=== PATIENT | female | born 1970 | race Caucasian/White ===

== ENCOUNTER 2023-11-10 17:39 | Emergency (ER) | payer BC, SELFPAY ==
[2023-11-10 17:41] VITALS: BP 126/78
--- NOTE | 2023-11-10 18:39 | ED.GENMED ---
History of Present Illness
General
Chief Complaint: Chest Pain
Time Seen by Provider: 11/10/23 18:04
Travel History
Have you had any contact with someone who has COVID-19?: No
Do you have any symptoms of coronavirus? Fever > 100 degrees, chills, cough, shortness of breath, sore throat, loss of taste or smell, muscle aches, or headache?: No
History of Present Illness
History of Present Illness:
53-year-old female with history of rheumatoid arthritis and hyperlipidemia presents to the emergency department for evaluation of episodic sharp chest pains occurring for the past 2 weeks. She also notes that she has had persistent thoracic back
pain during this time that does not seem to have any clear modifying factors. Chest pain is random, not provoked by anything in particular. Pain lasted mere seconds before resolving. Pain is nonradiating. Has recently establish care with a
mixed crop and livestock farm worker due to severe hyperlipidemia and had coronary calcium scoring as well as carotid ultrasounds, does not have these results as of yet. Currently asymptomatic in the ED exam room
Past History
Past History
ED Past Medical History: Other (migraine, ra, TIAs)
ED Past Surgical History: None
Social History
Tobacco: Non-smoker
Alcohol: None
Drug: None
Personal:
Living: with family
Review of Systems
Review of Systems
Allergies reviewed?: Yes
All Other Systems: ROS reviewed and negative except as documented in HPI and ROS
Phy Exam
Physical Exam
Physical Exam:
GEN: Well appearing, NAD, WDWN
HEENT: Oral mucosa moist, no scleral icterus
Cardiac: Regular rate and rhythm, no murmurs
Lung: No respiratory distress, no tachypnea, lungs clear to auscultation bilaterally
MSK: No gross deformity or injuries
Skin: Good color, no pallor or jaundice, no rashes
Neuro: AO x3, moves all extremities freely
Psych: Calm, cooperative
Scores
Heart Score for Chest Pain Patients
STEMI patient?: No
History: Slightly or Non-Suspicious
ECG: Normal
Age: >45 - <65 years
Risk Factors: 1 or 2 Risk Factors
Troponin: </= Normal Limit
Heart Score for Chest Pain Patients: 2
Heart Score Risk: 2.5% MACE over next 6 weeks
Course
Orders/Labs/Results
Orders:
Orders
11/10/23 17:40
Electrocardiogram (*1) Urgent
Reason for Study: Chest Pain
EKG- Treatment ONCE
11/10/23 19:30
Complete Blood Count/With Diff Urgent
Comprehensive Metabolic Panel Urgent
D-Dimer Urgent
Troponin I Urgent
11/10/23 20:14
CR Chest - 2 Views Urgent
Comment:
Reason For Exam: chest pain
Abnormal Lab Results
11/10/23
19:30
Creatinine 0.5 L mg/dL
(0.6-1.0)
Total Protein 6.1 L g/dl
(6.3-8.2)
11/10/23 19:30
11/10/23 19:30
Vital Signs
Initial and Last Documented VS:
Initial Vital Signs
Temp Pulse Resp BP Pulse Ox
97.9 F 83 20 126/78 99
11/10/23 17:41 11/10/23 17:41 11/10/23 17:41 11/10/23 17:41 11/10/23 17:41
Last Documented Vital Signs
Temp Pulse Resp BP Pulse Ox
97.9 F 72 15 97/62 98
11/10/23 17:41 11/10/23 20:54 11/10/23 20:54 11/10/23 21:16 11/10/23 21:18
MDM/Problems Addressed
MDM/Problems Addressed:
Patient's workup is grossly unremarkable. Low clinical suspicion for cardiogenic source of symptoms. D-dimer negative rules out PE. She is an unremarkable aortic arch on chest x-ray, given her lack of risk factors and female gender I find it
unlikely for her to have a aortic dissection particular given the duration of her thoracic back pain being 2 weeks. Recommend outpatient PCP follow-up
Comment
Comment:
EKG independently interpreted by me shows normal sinus rhythm at a rate of [address] changes concerning for ischemia, QTc of 461
*Critical Care Note
Total Time (30-74mins, 75-104mins- exclusive of procedures): Not Applicable
ED Attending Note
-
Portions of this chart may have been created with voice recognition software.� Occasional wrong word or��sound alike� substitutions may have occurred due to the inherent limitations of voice recognition software.
Discharge Plan
Departure
Patient Disposition: Home (Routine Discharge)
Date of Disposition: 11/10/23
Time of Disposition: 21:11
Patient with high blood pressure during this ER visit?: No
Discharge Problem:
Atypical chest pain
Instructions: Chest Pain That Is Not Caused by the Heart (DC)
Prescriptions:
No Action
pantoprazole 40 MG tablet,delayed release (DR/EC)
40 mg PO DAILY
Theragen Tablet
1 tab PO DAILY
aspirin 81 mg Tablet,Delayed Release (Dr/Ec)
81 mg PO DAILY
ibuprofen [Advil] 200 mg Tablet
400 mg PO TIDPRN PRN (Reason: mild pain)
cholecalciferol (vitamin D3) 25 mcg (1,000 unit) Tablet
25 mcg PO DAILYPRN PRN (Reason: supplement)
Repatha SureClick 140 mg/mL Pen Injector
140 mg SC Q2W
Humira(CF) Pen 40 mg/0.4 mL Pen Injector Kit
40 mg SC Q2W
Patient Comments:
11/10/2023, per pt., next dose is tomorrow (11/11/2023).
Referrals:
Alcon Obrien MD [Family Provider] -
Interventions
Interventions:
*Risk Screen - Suicide Last Done: 11/10/23 19:29
*General Assessment Last Done: 11/10/23 19:29
*Neglect/Abuse Screening Last Done: 11/10/23 19:29
ED- Fall Risk Assessment Last Done: 11/10/23 21:21
*ED COVID-19 Vaccine History Last Done: 11/10/23 19:29
*Nursing Disposition Last Done: 11/10/23 21:21
ED- Cardiac Assessment Last Done: 11/10/23 19:28
Discharge Date and Time
Discharge Date/Time: 11/10/23 21:32
[2023-11-10 19:20] VITALS: BP 99/65
[2023-11-10 19:38] LABS: % Basophils 0.3 % (0-2); % Immature Granulocytes 0.1 % (0-0.5); % Lymphocytes 30.6 % (20.5-51.1); % Monocytes 6.9 % (1.7-9.3); % Neutrophils 59.1 % (42.2-75.2); Absolute Eosinophils 0.2 10^3/uL (0-0.7); Absolute Lymphocytes 2.3 10^3/uL (1.2-3.4); Absolute Monocytes 0.5 10^3/uL (0.1-0.6); Absolute Neutrophils 4.4 10^3/uL (1.4-6.5); Hematocrit 38.2 % (37.0-47.0); Mean Corpuscular Hgb 30.1 pg (27.0-31.0); Mean Corpuscular Volume 88.4 fL (81.0-99.0); Mean Platelet Volume 10.3 fL (7.4-10.4); Nucleated Red Blood Cells % 0 %; Platelet Count 196 10^3/uL (130-400); Red Blood Cell Count 4.32 10^6/uL (4.20-5.40); Red Cell Dist. Width 12.6 % (11.5-14.5); White Blood Cell Count 7.4 10^3/uL (4.8-10.8)
[2023-11-10 19:53] LABS: D-Dimer < 0.27 ug/mlFEU (0.00-0.50)
[2023-11-10 19:59] LABS: ALT (SGPT) 16 U/L (0-35); AST (SGOT) 21 U/L (14-36); Albumin 3.9 g/dl (3.5-5.0); Alkaline Phosphatase 57 U/L (38-126); Blood Urea Nitrogen 17 mg/dl (7-17); Calcium 9.5 mg/dl (8.4-10.2); Carbon Dioxide 24 mmol/L (22-30); Chloride 105 mmol/L (98-107); Glucose 84 mg/dl (70-99); Potassium 3.9 mmol/L (3.5-5.1); Sodium 138 mmol/L (135-145); Total Bilirubin 0.6 mg/dl (0.2-1.3); Total Protein 6.1 g/dl (6.3-8.2); eGFR > 60.00
[2023-11-10 20:00] VITALS: BP 91/60
[2023-11-10 20:09] LABS: Troponin I < 0.012 ng/ml
[2023-11-10 21:16] VITALS: BP 97/62
== END 2023-11-10 21:32 | disposition home or self-care (01) ==
LOC: EMR 17:39
PROVIDERS: Physician Assistant; EMERGENCY PHYSICIAN Emergency Medicine; FAMILY PHYSICIAN Internal Medicine
DX: R07.89 Other chest pain (principal); M54.6 Pain in thoracic spine; Z86.73 Personal history of transient ischemic attack (TIA), and cerebral infarction without residual deficits
CPT/HCPCS: 99285; 71046; 80053; 84484; 85025; 85379; 93005